=== PATIENT | female | born 1995 | race Caucasian/White ===

== ENCOUNTER 2019-01-03 09:46 | Inpatient (IN) | payer OTHER ==
[~2019-01-03] VITALS: Ht 171 cm; Wt 77.6 kg
[2019-01-03] MEDS ORDERED: OXYTOCIN 30 UNITS/LACT RINGERS 500 ML IV ONE ×2 (10:31→20:46)
[2019-01-03] MEDS ORDERED: RINGERS SOLUTION,LACTATED 1,000 ML IV PRN (10:31)
[2019-01-03] MEDS ORDERED: METHYLERGONOVINE MALEATE 0.2 MG/ML VIAL IM PRN (10:45)
[2019-01-03] MEDS ORDERED: CARBOPROST TROMETHAMINE 250 MCG/ML AMP IM PRN (10:45)
[2019-01-03] MEDS ORDERED: LIDOCAINE/PF 1% 30 ML VIAL INJ PRN ×2 (10:45→21:00)
[2019-01-03] MEDS ORDERED: AMPICILLIN SODIUM 2 GM/NS 100 ML IV ONE (10:45)
[2019-01-03] MEDS ORDERED: CITRIC ACID/SODIUM CITRATE 30 ML SOLUTION UDCUP PO PRN (10:45)
[2019-01-03] MEDS ORDERED: METOCLOPRAMIDE HCL 5 MG/ML 2 ML VIAL IVP PRN (10:45)
[2019-01-03] MEDS: RINGERS SOLUTION,LACTATED 1,000 ML IV SCH ×2 (11:13→16:53)
[2019-01-03 11:41] LABS: BASOPHILS % (AUTO) 0.3 % (0.0-2.0); EOSINOPHILS % (AUTO) 0.4 % (1.0-6.0); HEMATOCRIT 31.3 % (36-46); HEMOGLOBIN 10.3 g/dL (12.0-16.0); LYMPHOCYTES # (AUTO) 1.2 K/uL (1.0-4.8); LYMPHOCYTES % (AUTO) 14.6 % (22.0-44.0); MEAN CORPUSCULAR HEMOGLOBIN 24.8 pg (26.0-34.0); MEAN CORPUSCULAR HGB CONC 32.9 G/dL (31.0-37.0); MEAN CORPUSCULAR VOLUME 75 fL (80-100); MONOCYTES # (AUTO) 0.5 K/uL (0.1-1.0); MONOCYTES % (AUTO) 5.8 % (2.0-9.0); NEUTROPHILS # (AUTO) 6.4 K/uL (1.8-7.7); NEUTROPHILS % (AUTO) 78.9 % (40.0-70.0); PLATELET COUNT (AUTO)-OB 299 K/uL (150-450); RED BLOOD CELL COUNT(AUTO) 4.15 MIL/uL (4.00-5.20); RED CELL DISTRIBUTION WIDTH 16.9 % (11.5-14.5)
[2019-01-03 12:10] VITALS: BP 119/76
[2019-01-03] MEDS ORDERED: PNV11TAB PO (12:13)
[2019-01-03] MEDS ORDERED: DiphenhydrAMINE HCL 50 MG/ML VIAL IVP PRN (12:30)
[2019-01-03] MEDS ORDERED: ROPIVACAINE HCL/PF 0.2% 100 ML ED PRN (12:30)
[2019-01-03] MEDS ORDERED: ONDANSETRON HCL 4 MG/2 ML VIAL IVP PRN (12:30)
[2019-01-03] MEDS ORDERED: ROPIVACAINE HCL/PF 0.2% 100 ML ED ONE (12:47)
[2019-01-03] MEDS ORDERED: OXYTOCIN 10 UNITS/ML VIAL IM ONE (14:15)
[2019-01-03] MEDS: AMPICILLIN SODIUM 1 GM/NS 50 ML IV SCH ×2 (15:38→19:05)
[2019-01-03] MEDS ORDERED: MINERAL OIL 30 ML UDCUP VG ONE (17:45)
[2019-01-03] MEDS ORDERED: *CLINICAL-GENTAMICIN DOSING CLINICAL ONE (19:45)
[2019-01-03] MEDS ORDERED: GENTAMICIN SULFATE 160 MG in DEXTROSE 5%-WATER 50 ML IV ONE (20:00)
[2019-01-03] MEDS ORDERED: OXYGEN THERAPY IH SCH (20:00)
[2019-01-03] MEDS ORDERED: NACL ISO OSM IV ONE (20:01)
[2019-01-03] MEDS ORDERED: GENTAMICIN IV ONE (20:01)
[2019-01-03] MEDS ORDERED: OxyCODONE HCL/ACETAMINOPHEN 5-325 MG TABLET PO PRN ×2 (21:00)
[2019-01-03] MEDS ORDERED: GLYCERIN/WITCH HAZEL LEAF 40 PADS JAR TP PRN (21:00)
[2019-01-03] MEDS ORDERED: BENZOCAINE 20%/MENTHOL 56 GM SPRAY CANISTER TP PRN (21:00)
[2019-01-03] MEDS: LANOLIN 7 GM OINTMENT TP PRN (22:34)
[2019-01-04] MEDS: IBUPROFEN 800 MG TABLET PO PRN ×3 (00:43→16:20)
[2019-01-04] MEDS ORDERED: GENTAMICIN 120 MG/NACL ISO-OSM 100 ML IV SCH (05:00)
[2019-01-04] MEDS: LANOLIN 7 GM OINTMENT TP PRN (05:37)
[2019-01-04 05:44] LABS: BASOPHILS % (AUTO) 0.2 % (0.0-2.0); EOSINOPHILS % (AUTO) 0.2 % (1.0-6.0); HEMATOCRIT 29.5 % (36-46); HEMOGLOBIN 9.7 g/dL (12.0-16.0); LYMPHOCYTES # (AUTO) 1.4 K/uL (1.0-4.8); LYMPHOCYTES % (AUTO) 8.9 % (22.0-44.0); MEAN CORPUSCULAR HEMOGLOBIN 24.5 pg (26.0-34.0); MEAN CORPUSCULAR HGB CONC 32.8 G/dL (31.0-37.0); MEAN CORPUSCULAR VOLUME 75 fL (80-100); MONOCYTES # (AUTO) 0.7 K/uL (0.1-1.0); MONOCYTES % (AUTO) 4.3 % (2.0-9.0); NEUTROPHILS # (AUTO) 13.5 K/uL (1.8-7.7); PLATELET COUNT (AUTO)-OB 293 K/uL (150-450); RED BLOOD CELL COUNT(AUTO) 3.94 MIL/uL (4.00-5.20); RED CELL DISTRIBUTION WIDTH 16.7 % (11.5-14.5)
[2019-01-04 05:46] LABS: NEUTROPHILS % (AUTO) 86.4 % (40.0-70.0)
[2019-01-04 05:51] LABS: ANION GAP 10 mmol/L (8-16); CALCIUM, TOTAL 8.2 mg/dL (8.8-10.5); CARBON DIOXIDE 23 mmol/L (22-29); CHLORIDE 104 mmol/L (98-107); CREATININE 0.74 mg/dL (0.60-1.30); GLOMERULAR FILTR. RATE CALC > 60 mL/min (>60); GLUCOSE,RANDOM 80 mg/dL (70-110); POTASSIUM 4.2 mmol/L (3.5-5.1); SODIUM SERUM 137 mmol/L (136-145); UREA NITROGEN, BLOOD 12 mg/dL (7-18)
[2019-01-04] MEDS: MAGNESIUM HYDROXIDE SUSPENSION 30 ML UDCUP PO PRN (09:39)
[2019-01-05] MEDS: IBUPROFEN 800 MG TABLET PO PRN ×2 (00:26→05:24)
[2019-01-05] MEDS: MAGNESIUM HYDROXIDE SUSPENSION 30 ML UDCUP PO PRN (00:26)
[2019-01-05] MEDS ORDERED: IBUP-2071 PO (09:47)
[2019-01-05] MEDS ORDERED: DOCU-275 PO (09:48)
[2019-01-05] MEDS ORDERED: FERR-89 PO (09:49)
== END 2019-01-05 11:40 | disposition home or self-care (01) | DRG 807 ==
LOC: OBSVTOIN 09:46 → 4S 09:46
PROVIDERS: ADMIT Obstetrics & Gynecology; ATTEND Obstetrics & Gynecology
PROC: 10E0XZZ Delivery of Products of Conception, External Approach (ICD-10-PCS; principal; 2019-01-03)
PROC: 10907ZC Drainage of Amniotic Fluid, Therapeutic from Products of Conception, Via Natural or Artificial Opening (ICD-10-PCS; 2019-01-03)
PROC: 3E0R3BZ Introduction of Anesthetic Agent into Spinal Canal, Percutaneous Approach (ICD-10-PCS; 2019-01-03)
PROC: 00HU33Z Insertion of Infusion Device into Spinal Canal, Percutaneous Approach (ICD-10-PCS; 2019-01-03)
PROC: 0KQM0ZZ Repair Perineum Muscle, Open Approach (ICD-10-PCS; 2019-01-03)
DX: O77.0 Labor and delivery complicated by meconium in amniotic fluid (principal); Z37.0 Single live birth; O70.1 Second degree perineal laceration during delivery; Z3A.40 40 weeks gestation of pregnancy
CPT/HCPCS: 86850; 86900; 86901; J0290; J1580; J2590; J2795; J7060; J7120